=== PATIENT | male | born 1980 | race Caucasian/White ===

== ENCOUNTER 2021-11-19 13:59 | Outpatient (REF) | payer MEDICAID, SELFPAY ==
[2021-11-19 21:10] LABS: HCT 45.4 % (40.0-50.0); HGB 15.3 g/dL (13.5-17.5); MCH 29.1 pg (27.0-33.0); MCHC 33.7 % (32.0-36.0); MCV 87 fL (80-95); MPV 11.4 fL (8.0-11.0); Platelet Count 307 10^3/uL (130-400); RBC 5.25 10^6/uL (4.36-5.78); RDW 13.2 % (11.8-14.1); RDW-SD 41.7 fL; WBC 8.92 10^3/uL (4.4-10.8)
[2021-11-19 21:18] LABS: Hemoglobin A1C 7.3 % (<5.7)
[2021-11-19 21:30] LABS: ALT 32 U/L (16-63); AST 20 U/L (15-37); Albumin 3.9 g/dL (3.4-5.0); Alkaline Phosphatase 100 U/L (46-116); Anion Gap 9.2 mmol/L (3-11); BUN 17 mg/dL (7-18); Bilirubin, Total 0.3 mg/dL (0.2-1.0); CO2 27.8 mmol/L (21.0-32.0); CREATININE 1.2 mg/dL (0.70-1.30); Chloride 100 mmol/L (98-107); Estimated GFR 77.43 (mL/min/1.73m2); Glucose 172 mg/dL (74-106); Potassium 3.7 mmol/L (3.5-5.1); Sodium 137 mmol/L (136-145); Total Protein 7.5 g/dL (6.4-8.2)
[2021-11-19 21:53] LABS: Cholesterol 247 mg/dL (<200); HDL Cholesterol 31 mg/dL (40-60); Triglyceride 519 mg/dL (<150)
[2021-11-19 22:09] LABS: LDL CHOLESTEROL 170 mg/dL (<100)
== END 2021-11-19 14:00 | disposition home or self-care (01) ==
LOC: NCHCN 13:59
PROVIDERS: Visit Provider Family Medicine
DX: E11.9 Type 2 diabetes mellitus without complications (principal); E78.1 Pure hyperglyceridemia; F10.10 Alcohol abuse, uncomplicated
CPT/HCPCS: 80053; 80061; 83721; 85027; 83036